=== PATIENT | male | born 1990 | race African-American/Black ===

== ENCOUNTER 2016-08-06 09:26 | Emergency (ER) | payer SELFPAY ==
[2016-08-06 10:18] VITALS: BP 126/75
--- NOTE | 2016-08-06 10:47 | ER Document Report ---
ED Foreign Body - General Chief Complaint: Foreign Body in Ear Stated Complaint: EAR PAIN Notes: Patient says he has a piece of an ink pen in his right ear since last Tuesday. He uses pens to scratch at his years and this one came apart while he was doing that leaving a piece of the pen deep into his right auditory canal. He went to a local urgent care this morning and they attempted to remove the foreign body but were unsuccessful and referred him here. TRAVEL OUTSIDE OF THE [place] IN LAST 30 DAYS: No - Related Data Allergies/Adverse Reactions: No Known Allergies Allergy (Unverified 08/06/16 09:30) Past Medical History - Social History Smoking Status: Current Every Day Smoker Chew tobacco use (# tins/day): No Frequency of alcohol use: Occasional Drug Abuse: None Family History: Reviewed & Not Pertinent Patient has suicidal ideation: No Patient has homicidal ideation: No Surgical Hx: Negative - Immunizations Immunizations up to date: Yes Hx Diphtheria, Pertussis, Tetanus Vaccination: No - Tetanus shot out of date. Review of Systems - Review of Systems Constitutional: denies: Chills, Fever EENT: Ear pain - Right ear feels "muffled", but not actually much pain. See history of present illness.. denies: Ear discharge, Nose congestion, Nose discharge Physical Exam - Vital signs Vitals: Temp Pulse Resp BP Pulse Ox 98.3 F 86 16 126/75 H 100 08/06/16 09:30 08/06/16 09:30 08/06/16 09:30 08/06/16 09:30 08/06/16 09:30 Interpretation: Normal - Notes Notes: PHYSICAL EXAMINATION: GENERAL: Well-appearing, in no acute distress. Vital signs are all normal. HEAD: Atraumatic, normocephalic. ENT: oropharynx clear without exudates. Moist mucous membranes. Deep in the right auditory canal, a piece of an ink pen can be visualized. It is far too deep for me to attempted to remove here in the emergency department. Patient says his hearing is somewhat muffled. NECK: Normal range of motion, supple. LUNGS: Breath sounds clear and equal bilaterally. HEART: Regular rate and rhythm without murmurs. ABDOMEN: Soft, nontender. No guarding or rebound. BACK: No tenderness throughout entire back. EXTREMITIES: Normal range of motion without pain. NEUROLOGICAL: Normal speech, normal gait. Normal sensory, motor, and reflex exams. Awake, alert, and oriented x3. Cranial nerves normal. Course - Re-evaluation Re-evalutation: 08/06/16 15:58 I tried to contact the local ENT office, but they are closed on Fridays. I did reach the on-call ENT doctor who agreed that we should not attempt to remove that foreign body in this emergency department with the currently available equipment here. He said that they have all the equipment necessary to remove this foreign body in their office, but they won't be open until Tuesday. He took the patient's name and information and said he would "make it happen" that the patient will get seen in their office Tuesday. I advised the patient of the need to wait until Tuesday to get this thing removed. I provided him with my card and my home telephone number and my cell number should he have any problem getting in to be seen when he calls the ENT office first thing Tuesday. - Vital Signs Vital signs: Temp Pulse Resp BP Pulse Ox 98.3 F 86 16 126/75 H 100 08/06/16 09:30 08/06/16 09:30 08/06/16 09:30 08/06/16 09:30 08/06/16 09:30 Discharge - Discharge Clinical Impression: Foreign body in right ear Qualifiers: Encounter type: initial encounter Qualified Code(s): T16.1XXA - Foreign body in right ear, initial encounter Condition: Stable Disposition: HOME, SELF-CARE Additional Instructions: Foreign Object in the Ear, Not Removed Examination showed a foreign body in the ear. This can cause pain, swelling , infection, and decreased hearing. The foreign object must be removed promptly. We were unable to remove it today. We are referring you to a specialist to have the foreign body removed. Call us if you aren't able to be seen as scheduled. Usually no further treatment is necessary following removal. If infection is already present, you may receive a prescription for antibiotic drops. If hearing is not normal after removal of the foreign object, or if an obvious injury to the eardrum was seen, another checkup with the specialist will be necessary. If there is continued drainage, continued earache, fever, headache, or hearing loss, you should return for further care. Call the ENT office first thing Tuesday. Their office phone number is [phone]. They should schedule you for an appointment to come to the office to utilize their special equipment for removing foreign bodies from the ear. I have spoken with Dr. Giraldo, ship yard electrical person ENT, and he told me that he will arrange for you to be seen at their local office on Tuesday. You can call me at the numbers provided Tuesday morning if the plan does not work out as scheduled. FOLLOW-UP CARE: If you have been referred to a physician for follow-up care, call the physician s office for an appointment as you were instructed or within the next two days. If you experience worsening or a significant change in your symptoms, notify the physician immediately or return to the Emergency Department at any time for re-evaluation. Forms: Return to Work Referrals: ALVIN GIRALDO MD [[facility]] - 08/09/16
== END 2016-08-06 10:54 | disposition home or self-care (01) ==
LOC: ER 09:26
DX: T16.1XXA Foreign body in right ear, initial encounter (principal); F17.200 Nicotine dependence, unspecified, uncomplicated
CPT/HCPCS: 99282